=== PATIENT | male | born 1980 | race Caucasian/White ===

== ENCOUNTER 2017-09-08 16:50 | Emergency (ER) | payer OTHER ==
[~2017-09-08] VITALS: Ht 177.8 cm; Wt 96.7 kg
[~2017-09-08 16:50] MED LIST: NOHOMEMEDS
[2017-09-08] MEDS ORDERED: NORCO 5/3251 TABLET PO (18:46)
[2017-09-08 19:07] VITALS: BP 141/98
== END 2017-09-08 19:27 | disposition home or self-care (01) ==
LOC: EME 16:50
DX: S83.92XA Sprain of unspecified site of left knee, initial encounter (principal); X50.0XXA Overexertion from strenuous movement or load, initial encounter; Y93.89 Activity, other specified; Y99.0 Civilian activity done for income or pay
CPT/HCPCS: 73564; 99281; 99283